=== PATIENT | male | born 2000 | race Caucasian/White ===

== ENCOUNTER 2021-02-22 23:38 | Emergency (ER) | payer BC ==
[~2021-02-22] VITALS: Ht 170.2 cm; Wt 72.7 kg
[2021-02-22 23:45] VITALS: TEMP 98.7
[2021-02-23 00:11] LABS: COLLECTION METHOD CLEAN CATCH
[2021-02-23 00:23] LABS: AMORPHOUS CRYSTAL Present /uL; PH 8 (5-8); SQUAMOUS EPITHELIAL None Seen /hpf; URINE APPEARANCE Cloudy; URINE BACTERIA Rare /hpf; URINE BILIRUBIN Negative (NEGATIVE); URINE BLOOD Negative (NEGATIVE); URINE COLOR Yellow; URINE GLUCOSE Negative (NEGATIVE); URINE KETONE Negative (NEGATIVE); URINE LEUKOCYTE ESTERASE Negative (NEGATIVE); URINE NITRATE Negative (NEGATIVE); URINE PROTEIN(semi-quant) Negative (NEGATIVE); URINE RBC 0-2 /hpf; URINE UROBILINOGEN Negative (NEGATIVE)
[2021-02-23] MEDS ORDERED: DOXYCYCLINE 10100 MG PO (01:32)
[2021-02-23 01:48] VITALS: BP 126/74; PULSE 78
== END 2021-02-23 01:48 | disposition home or self-care (01) ==
LOC: COL.ER 23:38
PROVIDERS: Emergency Medicine
DX: N45.1 Epididymitis (principal); F17.220 Nicotine dependence, chewing tobacco, uncomplicated
CPT/HCPCS: J0696